=== PATIENT | female | born 1945 | race American Indian/Alaskan Native ===

== ENCOUNTER 2017-09-13 12:05 | Outpatient (CLI) | payer MEDICARE ==
--- NOTE | 2017-09-14 11:07 | Mammography Report ---
BILATERAL DIGITAL SCREENING MAMMOGRAM with CAD: 09/13/17 12:05:00 CLINICAL: Routine screening. COMPARISON:06/19/16 FINDINGS: The breasts are heterogeneously dense, which may obscure small masses. No mass, architectural distortion or suspicious calcifications. IMPRESSION: No mammographic evidence of malignancy. BI-RADS CATEGORY: 1 - - Negative RECOMMENDATION: Routine mammographic screening in one year. COMMENT: Patient follow-up letters are generated by our [employer] application.
== END 2017-09-13 12:06 | disposition home or self-care (01) ==
LOC: SPVWC 12:05
PROVIDERS: ATTEND Internal Medicine
DX: Z12.31 Encounter for screening mammogram for malignant neoplasm of breast (principal)
CPT/HCPCS: 77067

== ENCOUNTER 2021-03-08 12:32 | Outpatient (CLI) | payer MEDICARE ==
--- NOTE | 2021-03-08 16:02 | XRay Report ---
Lumbar spine 6 views INDICATION: Left low back pain. Right-sided sciatic pain. No recent injury IMPRESSION: Mild diffuse osteopenia. There is moderate multilevel discogenic and facet arthropathy pa rticularly of the lower lumbar spine at L4-L5 and L5-S1. No significant neural foraminal stenosis is identified. Signer Name: Nelson Nielson MD Signed: 03/08/2021 3:57 PM Workstation Name: [id number]
--- NOTE | 2021-03-08 16:10 | XRay Report ---
SI joints-4 total views INDICATION: ACUTE LEFT SIDED LOW BACK PAIN WITH RIGHT SIDED SCIATICA. COMPARISON: None. IMPRESSION: No acute osseous abnormality. Soft tissues are normal. Normal alignment. 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 Signer Name: Eugenio Soto MD Signed: 03/08/2021 4:06 PM Workstation Name: [email or web address]
== END 2021-03-08 12:33 | disposition home or self-care (01) ==
LOC: SPVIMAG 12:32
PROVIDERS: ATTEND Internal Medicine
DX: M47.817 Spondylosis without myelopathy or radiculopathy, lumbosacral region (principal); M47.898 Other spondylosis, sacral and sacrococcygeal region; M54.41 Lumbago with sciatica, right side
CPT/HCPCS: 72110; 72202